=== PATIENT | male | born 2000 | race Caucasian/White ===

== ENCOUNTER 2023-06-14 15:44 | Emergency (ER) | payer SELFPAY ==
[2023-06-14 15:51] VITALS: BP 127/83; PULSE 97; RESP 18; TEMP 36.6; O2SAT 100; BMI 49.4
--- NOTE | 2023-06-14 16:03 | ED.GENADUL1 ---
Documented by User: Senait Adams 06/14/23 19:28 HPI - General Adult General Chief complaint: Urogenital-Male Stated complaint: Hematuria Time Seen by Provider: 06/14/23 15:53 Source: patient Mode of arrival: walk-in Limitations: no limitations History of Present Illness HPI narrative: 23 year old male presents to the ED for hematuria, low back pain, dysuria. Onset was 2-3 days ago. Denies fever, chills, injur, weakness. Denies N/V/D. Denies change in bowel and/or bladder control. Denies saddle anesthesia. Rates his pain 4/10 at this time. He is accompanied by family. Related Data Allergies Allergy/AdvReac Type Severity Reaction Status Date / Time No Known Drug Allergies Allergy Verified 06/14/23 15:50 Review of Systems ROS Constitutional Denies: fever or chills Ears, nose, mouth, and throat Denies: throat pain Cardiovascular Denies: chest pain Respiratory Denies: shortness of breath Gastrointestinal Denies: abdominal pain, nausea, vomiting or diarrhea Genitourinary Reports: painful urination and blood in urine; Denies: urinary frequency, urinary urgency, genital pain, genital lesion, penile discharge, testicular pain, scrotal swelling, difficulty urinating or change in urine stream Musculoskeletal Reports: back pain; Denies: neck pain Integumentary/Breast Denies: rash, itching or redness Neurological Denies: headache, numbness in extremities, weakness in extremities or lack of coordination PFSH PFSH Social History Smoking status: Never smoker Exam Constitutional Vital Signs, click to edit/add: Last Vital Signs Temp 97.9 F 06/14/23 15:51 Pulse 95 H 06/14/23 17:40 Resp 18 06/14/23 17:40 BP 132/71 06/14/23 17:40 Pulse Ox 98 06/14/23 17:40 Common normals: no apparent distress and oriented x3 General appearance: cooperative Eye Common normals: conjunctivae normal and no scleral icterus Neck & C-Spine Common normals: supple Chest Chest: symmetrical chest wall rise Respiratory Effort & inspection: able to speak in complete sentences and symmetric chest movement Cardio Common normals: regular rate GI Common normals: soft to palpation and non-tender Bladder/kidney exam: no CVA tenderness Back & Pelvis Thoracic spine/upper back: normal to inspection, thoracic ROM normal, pain with ROM and paraspinal muscle tenderness; no thoracic spinal tenderness Lumbar spine/lower back: normal to inspection, lumbar ROM normal, pain with ROM and paraspinal muscle tenderness; no lumbar spinal tenderness Neuro Common normals: oriented x3 Sensorium/orientation: awake and alert Speech: speech normal Gait (neuro): normal gait Course Vital Signs Vital signs: Vital Signs Temperature 97.9 F 06/14/23 15:51 Pulse Rate 97 H 06/14/23 15:51 Respiratory Rate 18 06/14/23 15:51 Blood Pressure 127/83 06/14/23 15:51 Pulse Oximetry 100 06/14/23 15:51 Temperature 97.9 F 06/14/23 15:51 Pulse Rate 95 H 06/14/23 17:40 Respiratory Rate 18 06/14/23 17:40 Blood Pressure 132/71 06/14/23 17:40 Pulse Oximetry 98 06/14/23 17:40 Medical Decision Making MDM Narrative Medical decision making narrative: Urinalysis was positive for trichomonas. GC/chlamydia and urine cultures were pending. Imaging was negative for acute findings; see below. He was medicated with Flagyl here. Follow up with pcp for a recheck, further evaluation and treatment. Medical Records Medical records reviewed: Yes I reviewed the patient's medical records Lab Data Lab results reviewed: Yes I reviewed the patient's lab results Labs: Lab Results 06/14/23 06/14/23 Range/Units 15:56 16:12 WBC 9.5 (4.0-11.0) 10^3/uL RBC 5.54 (4.70-6.10) 10^6/uL Hgb 16.1 (14.0-18.0) g/dL Hct 49.0 (42.0-54.0) % MCV 88.4 (80.0-94.0) fL MCH 29.1 (25.9-34.0) pg MCHC 32.9 (29.9-35.2) g/dL RDW 13.6 (11.0-15.0) % Plt Count 286 (150-450) 10^3/uL MPV 10.2 (9.5-13.5) fL Neut % (Auto) 71.9 (43.0-75.0) % Lymph % (Auto) 20.7 (20.5-60.0) % [place] % (Auto) 4.9 (1.7-12.0) % Eos % (Auto) 1.7 (0.9-7.0) % Baso % (Auto) 0.6 (0.2-2.0) % Neut # (Auto) 6.8 H (1.4-6.5) 10^3/uL Lymph # (Auto) 2.0 (1.2-3.8) 10^3/uL [place] # (Auto) 0.5 (0.3-0.8) 10^3/uL Eos # (Auto) 0.2 (0.0-0.7) 10^3/uL Baso # (Auto) 0.1 (0.0-0.1) 10^3/uL Abs Immat Gran (auto) 0.02 (0.00-0.03) 10^3/uL Imm/Tot Granulo (auto) 0.2 (0.0-0.5) % Sodium 142 (136-145) mmol/L Potassium 4.0 (3.5-5.1) mmol/L Chloride 105 (98-107) mmol/L Carbon Dioxide 27.1 (21.0-32.0) mmol/L Anion Gap 13.9 BUN 11.0 (7.0-18.0) mg/dL Creatinine 0.87 (0.70-1.30) mg/dL Est GFR ( Amer) >60 (>=60) Est GFR (Non-Af Amer) >60 (>=60) BUN/Creatinine Ratio 12.6 Glucose 106 (74-106) mg/dL Calcium 9.5 (8.5-10.1) mg/dL Total Bilirubin 0.7 (0.2-1.0) mg/dL AST 48 H (15-37) U/L ALT 91 H (16-63) U/L Alkaline Phosphatase 78 (46-116) U/L Total Protein 8.4 H (6.4-8.2) g/dL Albumin 3.6 (3.4-5.0) g/dL Globulin 4.8 g/dL Albumin/Globulin Ratio 0.8 Urine Color Lt. yellow (YELLOW) Urine Clarity Clear (CLEAR) Urine pH 7.0 (5.0-9.0) Ur Specific [place] 1.020 (1.005-1.025) Urine Protein Negative (NEG/TRACE) mg/dL Urine Glucose (UA) Negative (NEGATIVE) mg/dL Urine Ketones Negative (NEGATIVE) mg/dL Urine Occult Blood Moderate A (NEGATIVE) Urine Nitrite Negative (NEGATIVE) Urine Bilirubin Negative (NEGATIVE) Urine Urobilinogen 0.2 (0.2-1.0) EU/dL Ur Leukocyte Esterase Small A (NEGATIVE) Urine RBC 5-10 A (0-2) #/HPF Urine WBC 5-10 A (NONE SEEN) #/HPF Ur Squamous Epith Cells Few A (NONE/RARE) #/LPF Urine Crystals None seen (None Seen) #/HPF Urine Bacteria Small A (NONE SEEN) #/HPF Urine Casts None seen (NONE SEEN) #/LPF Urine Mucus None seen (NONE SEEN) Urine Trichomonas Seen A (NONE SEEN) Ur Culture Indicated? Yes Imaging Data CT scan - abdomen: Attestation: I have reviewed the pertinent imaging results. Radiologist's impression: Procedure: CT abdomen pelvis wo con EXAM: CT abdomen pelvis wo con; [id number] REASON FOR EXAM: hematuria, flank pain TECHNIQUE: Helical CT images of the abdomen and pelvis were obtained without IV contrast. Multiplanar reformats were generated at the scanner. Dose reduction technique used: Automated exposure control and/or adjustment of the mA and/or kV according to patient size and/or use of iterative reconstruction technique. COMPARISON: None. FINDINGS: Note: Compared with a contrast-enhanced CT exam, noncontrast images are relatively insensitive for detection of solid organ and vascular abnormalities. Visualized Chest: Small benign calcified granuloma in the posterior right lower lobe. Abdomen: Liver: Hepatic steatosis. Gallbladder: No calcified gallstones. No acute inflammatory changes. Bile Ducts: No significant biliary ductal dilatation. Pancreas: No ductal dilatation or inflammatory changes. Spleen: No splenomegaly. Adrenals: No nodules. Kidneys: -No stones or hydronephrosis. -Single well-circumscribed subcentimeter hypodensity in the anterior aspect of the interpolar region of the left kidney is too small to further characterize with any imaging modality though likely represents a benign cyst. Vascular: No aortic aneurysm. Lymph Nodes: Scattered mildly prominent lymph nodes throughout the abdomen, most notable in the right lower quadrant and lower periaortic region. For example, right lower quadrant lymph node measuring 9 x 6 mm (series 3 image 90). Abdominal Wall: Small fat-containing right inguinal hernia. Pelvis: No mass or adenopathy. Bowel/Peritoneal Cavity/Mesentery: -No bowel obstruction or significant ileus. -No acute inflammatory changes. -No free air or free fluid. Musculoskeletal: No acute fracture or suspicious osseous lesion. CT/CT abdomen pelvis wo con IMPRESSION: 1. Within the limitations of this noncontrast exam, no etiology for flank pain and hematuria demonstrated. Specifically, no kidney stones or hydronephrosis. 2. Nonspecific borderline intra-abdominal adenopathy, likely reactive given the patient's young age, however, early metastatic disease cannot be ruled out (particularly if there is a history of testicular cancer). 3. Hepatic steatosis. Electronically authenticated by: NICOL AHMADI Date: 06/14/2023 16:53 Discharge Plan Discharge Chief Complaint: Urogenital-Male Clinical Impression: Trichomonal infection, Back pain Patient Disposition: Home, Self-Care Time of Disposition Decision: 17:58 Condition: Good Mode of Transportation: Private Vehicle Instructions: Trichomoniasis (ED), Back Pain (ED) Stand Alone Forms: Portal Instructions Referrals: Physician,Non-Staff, [Primary Care Provider] - As soon as possible Discharge Date/Time: 06/14/23 18:24 Documented by User: Carlton Redmond MD 06/14/23 20:06 HPI - General Adult General Chief complaint: Urogenital-Male Stated complaint: Hematuria Time Seen by Provider: 06/14/23 15:53 Related Data Allergies Allergy/AdvReac Type Severity Reaction Status Date / Time No Known Drug Allergies Allergy Verified 06/14/23 15:50 PFSH PFSH Social History Smoking status: Never smoker Exam Constitutional Vital Signs, click to edit/add: Last Vital Signs Temp 97.9 F 06/14/23 15:51 Pulse 95 H 06/14/23 17:40 Resp 18 06/14/23 17:40 BP 132/71 06/14/23 17:40 Pulse Ox 98 06/14/23 17:40 Course Vital Signs Vital signs: Vital Signs Temperature 97.9 F 06/14/23 15:51 Pulse Rate 97 H 06/14/23 15:51 Respiratory Rate 18 06/14/23 15:51 Blood Pressure 127/83 06/14/23 15:51 Pulse Oximetry 100 06/14/23 15:51 Temperature 97.9 F 06/14/23 15:51 Pulse Rate 95 H 06/14/23 17:40 Respiratory Rate 18 06/14/23 17:40 Blood Pressure 132/71 06/14/23 17:40 Pulse Oximetry 98 06/14/23 17:40 Medical Decision Making MDM Narrative Medical decision making narrative: Urinalysis was positive for trichomonas. GC/chlamydia and urine cultures were pending. Imaging was negative for acute findings; see below. He was medicated with Flagyl here. Follow up with pcp for a recheck, further evaluation and treatment. I, Dr Redmond, have reviewed the above progress note and course of action in the ER; agree with the above. I have evaluated this patient, gone over history and physical, and discussed disposition and treatment plan with the patient. Lab Data Labs: Lab Results 06/14/23 06/14/23 Range/Units 15:56 16:12 WBC 9.5 (4.0-11.0) 10^3/uL RBC 5.54 (4.70-6.10) 10^6/uL Hgb 16.1 (14.0-18.0) g/dL Hct 49.0 (42.0-54.0) % MCV 88.4 (80.0-94.0) fL MCH 29.1 (25.9-34.0) pg MCHC 32.9 (29.9-35.2) g/dL RDW 13.6 (11.0-15.0) % Plt Count 286 (150-450) 10^3/uL MPV 10.2 (9.5-13.5) fL Neut % (Auto) 71.9 (43.0-75.0) % Lymph % (Auto) 20.7 (20.5-60.0) % [place] % (Auto) 4.9 (1.7-12.0) % Eos % (Auto) 1.7 (0.9-7.0) % Baso % (Auto) 0.6 (0.2-2.0) % Neut # (Auto) 6.8 H (1.4-6.5) 10^3/uL Lymph # (Auto) 2.0 (1.2-3.8) 10^3/uL [place] # (Auto) 0.5 (0.3-0.8) 10^3/uL Eos # (Auto) 0.2 (0.0-0.7) 10^3/uL Baso # (Auto) 0.1 (0.0-0.1) 10^3/uL Abs Immat Gran (auto) 0.02 (0.00-0.03) 10^3/uL Imm/Tot Granulo (auto) 0.2 (0.0-0.5) % Sodium 142 (136-145) mmol/L Potassium 4.0 (3.5-5.1) mmol/L Chloride 105 (98-107) mmol/L Carbon Dioxide 27.1 (21.0-32.0) mmol/L Anion Gap 13.9 BUN 11.0 (7.0-18.0) mg/dL Creatinine 0.87 (0.70-1.30) mg/dL Est GFR ( Amer) >60 (>=60) Est GFR (Non-Af Amer) >60 (>=60) BUN/Creatinine Ratio 12.6 Glucose 106 (74-106) mg/dL Calcium 9.5 (8.5-10.1) mg/dL Total Bilirubin 0.7 (0.2-1.0) mg/dL AST 48 H (15-37) U/L ALT 91 H (16-63) U/L Alkaline Phosphatase 78 (46-116) U/L Total Protein 8.4 H (6.4-8.2) g/dL Albumin 3.6 (3.4-5.0) g/dL Globulin 4.8 g/dL Albumin/Globulin Ratio 0.8 Urine Color Lt. yellow (YELLOW) Urine Clarity Clear (CLEAR) Urine pH 7.0 (5.0-9.0) Ur Specific [place] 1.020 (1.005-1.025) Urine Protein Negative (NEG/TRACE) mg/dL Urine Glucose (UA) Negative (NEGATIVE) mg/dL Urine Ketones Negative (NEGATIVE) mg/dL Urine Occult Blood Moderate A (NEGATIVE) Urine Nitrite Negative (NEGATIVE) Urine Bilirubin Negative (NEGATIVE) Urine Urobilinogen 0.2 (0.2-1.0) EU/dL Ur Leukocyte Esterase Small A (NEGATIVE) Urine RBC 5-10 A (0-2) #/HPF Urine WBC 5-10 A (NONE SEEN) #/HPF Ur Squamous Epith Cells Few A (NONE/RARE) #/LPF Urine Crystals None seen (None Seen) #/HPF Urine Bacteria Small A (NONE SEEN) #/HPF Urine Casts None seen (NONE SEEN) #/LPF Urine Mucus None seen (NONE SEEN) Urine Trichomonas Seen A (NONE SEEN) Ur Culture Indicated? Yes Discharge Plan Discharge Chief Complaint: Urogenital-Male Clinical Impression: Trichomonal infection, Back pain Patient Disposition: Home, Self-Care Time of Disposition Decision: 17:58 Condition: Good Mode of Transportation: Private Vehicle Instructions: Trichomoniasis (ED), Back Pain (ED) Stand Alone Forms: Portal Instructions Referrals: Physician,Non-Staff, MD [Primary Care Provider] - As soon as possible Discharge Date/Time: 06/14/23 18:24
[2023-06-14 16:10] LABS: Bilirubin Urine NEGATIVE (NEGATIVE); Blood Urine MODERATE (NEGATIVE); Clarity Urine CLEAR (CLEAR); Color Urine LT. YELLOW (YELLOW); Glucose Urine UA NEGATIVE (NEGATIVE); Ketones Urine NEGATIVE (NEGATIVE); Leukocyte Esterase Urine SMALL (NEGATIVE); Nitrite Urine NEGATIVE (NEGATIVE); Protein Urine NEGATIVE (NEG/TRACE); Urobilinogen Urine 0.2 EU/dL (0.2-1.0)
[2023-06-14 16:15] LABS: Urine Microscopic Indicated YES
[2023-06-14 16:17] LABS: Basophils Absolute Auto 0.1 10^3/uL (0.0-0.1); Basophils Percent Auto 0.6 % (0.2-2.0); Eosinophils Absolute Auto 0.2 10^3/uL (0.0-0.7); Eosinophils Percent Auto 1.7 % (0.9-7.0); Hemoglobin 16.1 g/dL (14.0-18.0); Immature Granulocytes Abs Auto 0.02 10^3/uL (0.00-0.03); Immature Granulocytes Pct Auto 0.2 % (0.0-0.5); Lymphocytes Percent Auto 20.7 % (20.5-60.0); Mean Corpuscular HGB Conc 32.9 g/dL (29.9-35.2); Mean Corpuscular Hemoglobin 29.1 pg (25.9-34.0); Mean Corpuscular Volume 88.4 fL (80.0-94.0); Mean Platelet Volume 10.2 fL (9.5-13.5); Monocytes Absolute Auto 0.5 10^3/uL (0.3-0.8); Monocytes Percent Auto 4.9 % (1.7-12.0); Neutrophils Absolute Auto 6.8 10^3/uL (1.4-6.5); Neutrophils Percent Auto 71.9 % (43.0-75.0); Platelet Count 286 10^3/uL (150-450); Red Blood Count 5.54 10^6/uL (4.70-6.10); Red Cell Distribution Width 13.6 % (11.0-15.0); White Blood Count 9.5 10^3/uL (4.0-11.0)
[2023-06-14 16:21] LABS: Bacteria Urine SMALL #/HPF (NONE SEEN); Cast Seen? NONE SEEN #/LPF (NONE SEEN); Crystals Seen? None Seen #/HPF (None Seen); Mucus Urine NONE SEEN (NONE SEEN); Squamous Epithelial Cell Urine FEW #/LPF (NONE/RARE); Trichomonas Urine SEEN (NONE SEEN); Urine Culture Indicated YES
[2023-06-14 16:34] LABS: Alanine Aminotransferase 91 U/L (16-63); Albumin Globulin Ratio 0.8; Albumin Level 3.6 g/dL (3.4-5.0); Alkaline Phosphatase 78 U/L (46-116); Anion Gap 13.9; Aspartate Amino Transferase 48 U/L (15-37); BUN Creatinine Ratio 12.6; Bilirubin Total 0.7 mg/dL (0.2-1.0); Calcium 9.5 mg/dL (8.5-10.1); Carbon Dioxide 27.1 mmol/L (21.0-32.0); Chloride 105 mmol/L (98-107); Estimated GFR (African America >60 (>=60); Estimated GFR (Non-African Ame >60 (>=60); Globulin 4.8 g/dL; Glucose 106 mg/dL (74-106); Sodium 142 mmol/L (136-145); Total Protein 8.4 g/dL (6.4-8.2)
[2023-06-14 17:40] VITALS: BP 132/71; PULSE 95; RESP 18; O2SAT 98
[2023-06-14] MEDS: METRONIDAZOLE 250 MG TABLET 2000 MG PO (18:08)
[2023-06-16 22:06] LABS: Neisseria gonorrhoeae, NAA Negative (Negative)
== END 2023-06-14 18:24 | disposition home or self-care (01) ==
PROVIDERS: Nurse Practitioner Family; Emergency Provider Emergency Medicine
DX: A59.9 Trichomoniasis, unspecified (principal); M54.9 Dorsalgia, unspecified
CPT/HCPCS: 36415; 74176; 80053; 81001; 85025; 87086; 87491; 87591; 99284